=== PATIENT | male | born 1980 | race Caucasian/White ===

== ENCOUNTER 2018-05-12 21:27 | Emergency (ER) | payer BC ==
--- NOTE | 2018-05-13 00:15 | RADIOLOGY REPORT (SQ) ---
EXAM DESCRIPTION: Acute abdominal series single view chest. COMPLETED DATE/TME: 05/12/2018 23:28 CLINICAL HISTORY: 37 years, Male, LLQ pain FINDINGS: Single view of the chest with upright and supine views of the abdomen. Cardiomediastinal silhouette has normal size and contour. No consolidation, pneumothorax, or pleural effusion. No free intraperitoneal air. No definite organomegaly. 2 calcifications overlie the expected region of the left kidney, the largest measuring 0.7 cm. No dilated loops of large or small bowel. IMPRESSION: 1. No acute pulmonary process. 2. Left nephrolithiasis. 3. Nonobstructive bowel gas pattern. 2011 [employer]- All Rights Reserved
[2018-05-13 00:21] LABS: ABSOLUTE BASOPHILS # (AUTO) 0.1 10^3/uL (0.0-0.2); ABSOLUTE EOSINOPHILS # (AUTO) 0.4 10^3/uL (0.0-0.6); ABSOLUTE LYMPHOCYTES (AUTO) 3.6 10^3/uL (0.5-4.7); ABSOLUTE MONOCYTES (AUTO) 0.9 10^3/uL (0.1-1.4); ABSOLUTE NEUT (AUTO) 7.2 10^3/uL (1.7-8.2); BASOPHILS % (AUTO) 1.2 % (0-2); EOSINOPHILS % (AUTO) 3.1 % (0-6); HEMATOCRIT 45.9 % (37.9-51.0); HEMOGLOBIN 15.6 g/dL (13.5-17.0); LYMPHOCYTES % (AUTO) 29.2 % (13-45); MEAN CORPUSCULAR HEMOGLOBIN 30.4 pg (27.0-33.4); MEAN CORPUSCULAR HGB CONC 34.1 g/dL (32.0-36.0); MEAN CORPUSCULAR VOLUME 89 fl (80-97); MONOCYTES % (AUTO) 7.5 % (3-13); PLATELET COUNT 241 10^3/uL (150-450); RED BLOOD COUNT 5.14 10^6/uL (4.35-5.55); RED CELL DISTRIBUTION WIDTH 13.1 % (11.5-14.0); TOTAL CELLS COUNTED % (AUTO) 100 %; WHITE BLOOD COUNT 12.3 10^3/uL (4.0-10.5)
--- NOTE | 2018-05-13 00:21 | ER Document Report ---
ED General - General Chief Complaint: Abdominal Pain Stated Complaint: ABDOMINAL PAIN Time Seen by Provider: 05/12/18 23:12 Mode of Arrival: Ambulatory Information source: Patient Notes: 37-year-old male patient presents with left sided abdominal pain that has been intermittent for the last 2 weeks. Patient reports that he has also had nausea for the last 2 days. Patient denies any vomiting, diarrhea or fever. Patient denies any urinary symptoms such as frequency, urgency or dysuria. Patient does report that he usually has a normal soft bowel movement at least once a day patient reports that his bowel movements have changed. Patient reports that now he has "flaky" bowel movements which are not normal for him. Patient reports past medical history of kidney stones, patient states that he has a stone sitting in his left kidney that was diagnosed last summer. Patient reports past surgical history of a vasectomy approximately 10 years ago. Patient denies the use of any tobacco or drugs. Reports occasional EtOH use TRAVEL OUTSIDE OF THE [place] IN LAST 30 DAYS: No - Related Data Allergies/Adverse Reactions: No Known Allergies Allergy (Verified 05/12/18 21:28) Past Medical History - General Information source: Patient - Social History Smoking Status: Never Smoker Chew tobacco use (# tins/day): No Frequency of alcohol use: Occasional Drug Abuse: None Lives with: Spouse/Significant other Family History: Other - mother with kidney stones Patient has suicidal ideation: No Patient has homicidal ideation: No Renal/ Medical History: Reports: Hx Kidney Stones. Denies: Hx Peritoneal Dialysis Past Surgical History: Reports: Hx Genitourinary Surgery - Vasectomy Review of Systems - Review of Systems Constitutional: No symptoms reported EENT: No symptoms reported Cardiovascular: No symptoms reported Respiratory: No symptoms reported Gastrointestinal: See HPI Genitourinary: No symptoms reported Male Genitourinary: No symptoms reported Musculoskeletal: No symptoms reported Skin: No symptoms reported Hematologic/Lymphatic: No symptoms reported Neurological/Psychological: No symptoms reported Physical Exam - Vital signs Vitals: Temp Pulse Resp BP Pulse Ox 98.2 F 99 20 129/94 H 98 05/12/18 21:47 05/12/18 21:47 05/12/18 21:47 05/12/18 21:47 05/12/18 21:47 - Notes Notes: PHYSICAL EXAMINATION: GENERAL: Well-appearing, well-nourished and in no acute distress. HEAD: Atraumatic, normocephalic. EYES: Pupils equal round and reactive to light, extraocular movements intact, sclera anicteric, conjunctiva are normal. ENT: Nares patent, oropharynx clear without exudates. Moist mucous membranes. NECK: Normal range of motion, supple without lymphadenopathy LUNGS: Breath sounds clear to auscultation bilaterally and equal. No wheezes rales or rhonchi. HEART: Regular rate and rhythm without murmurs ABDOMEN: TTP to LLQ, abdomen otherwise soft, nontender and nondistended. No guarding, no rebound. No masses appreciated. : No CVA tenderness Musculoskeletal: Normal range of motion, no pitting or edema. No cyanosis. NEUROLOGICAL: Cranial nerves grossly intact. Normal speech, normal gait. Normal sensory, motor exams PSYCH: Normal mood, normal affect. SKIN: Warm, Dry, normal turgor, no rashes or lesions noted. Course - Re-evaluation Re-evalutation: 37-year-old male patient with complaints of left lower lower quadrant pain intermittently for the last 2 weeks with associated nausea 2 days. Will draw CBC, comprehensive, lipase and perform a urinalysis. Will also do a acute abdominal series to evaluate for any constipation or blockages. Patient currently appears comfortable, patient states that he took a tablet of his OxyContin that he had at home leftover from his kidney stones patient reports that this helped somewhat with his pain. Patient declines the need for any pain or nausea medications at this time. CBC, comprehensive, lipase unremarkable. Urinalysis with large blood. Acute abdominal series with left nephrolithiasis. CT limited shows no acute inflammatory or obstructive processes. Left nephrolithiasis unchanged from previous. Appendix appears normal. Will discharge patient home with pain and nausea medications and ED return precautions to include worsening pain, persistent vomiting or development of fever. - Vital Signs Vital signs: Temp Pulse Resp BP Pulse Ox 98.2 F 99 20 129/94 H 98 05/12/18 21:47 05/12/18 21:47 05/12/18 21:47 05/12/18 21:47 05/12/18 21:47 - Laboratory Result Diagrams: 05/13/18 00:02 05/13/18 00:02 Laboratory results interpreted by me: 05/13/18 05/13/18 05/13/18 00:02 00:02 00:02 WBC 12.3 H Sodium 145.2 H Creatinine 1.31 H Urine Blood LARGE H Urine Urobilinogen 2.0 H Discharge - Discharge Clinical Impression: Nausea Abdominal pain Qualifiers: Abdominal location: left lower quadrant Qualified Code(s): R10.32 - Left lower quadrant pain Additional Instructions: Abdominal Pain There are many causes of abdominal pain. Pain can mean a serious problem requiring surgery (such as appendicitis). It can also be an innocent problem that goes away on its own (such as a viral infection). Often, time must pass to determine the cause of pain. The physician does not feel that hospitalization is necessary, at present. Things may change within the next 24 hours. Call the doctor or come back for re- examination if any problems occur, such as: (1) Pain that becomes more severe, steady, or becomes concentrated in one specific area. Also, pain that is more severe with movement or coughing. (2) Vomiting that persists or becomes more frequent. (3) Blood in the vomitus, urine, or bowel movements. Blood in the stool may have a tarry or black appearance. (4) Shaking chills or fever greater than 100 degrees F. (5) The abdomen becomes more distended or swollen. (6) Bowel movements cease. (7) Failure to improve as expected. Your work up today was normal other than some blood in your urine. This may be caused by your kidney stone. The kidney stone is still in the left kidney. Please taken the medications as prescribed. Please return to the emergency department if you develop worsening pain, vomiting, persistent diarrhea or if you develop a fever with any of the previous symptoms. Prescriptions: Hydrocodone Bit/Acetaminophen [Hydrocodon-Acetaminophen 5-325] 1 each PO Q4 PRN #12 tablet PRN Reason: For Pain Ondansetron [Zofran Odt 4 mg Tablet] 1 - 2 tab PO Q4H PRN #15 tab.rapdis PRN Reason: For Nausea/Vomiting Referrals: DIDIER VALDOVINOS MD [Primary Care Provider] - Follow up as needed
[2018-05-13 00:34] LABS: APPEARANCE,URINE CLEAR; BILIRUBIN,URINE NEGATIVE (NEGATIVE); COLOR,URINE YELLOW; GLUCOSE, URINE NEGATIVE (NEGATIVE); KETONES,URINE NEGATIVE (NEGATIVE); LEUKOCYTE ESTERASE,URINE NEGATIVE (NEGATIVE); NITRITE,URINE NEGATIVE (NEGATIVE); PROTEIN,URINE NEGATIVE (NEGATIVE); URINE SPECIFIC GRAVITY 1.021
[2018-05-13 00:36] LABS: ALANINE AMINOTRANSFERASE 64 U/L (21-72); ALBUMIN 4.5 g/dL (3.5-5.0); ALKALINE PHOSPHATASE 98 U/L (38-126); ANION GAP 11 (5-19); ASPARTATE AMINO TRANSFERASE 36 U/L (17-59); BILIRUBIN,DIRECT 0.3 mg/dL (0.0-0.4); BILIRUBIN,TOTAL 0.4 mg/dL (0.2-1.3); BLOOD UREA NITROGEN 18 mg/dL (7-20); CALCIUM 9.7 mg/dL (8.4-10.2); CARBON DIOXIDE 27 mmol/L (22-30); CHLORIDE 107 mmol/L (98-107); GLUCOSE 92 mg/dL (75-110); LIPASE 45.8 U/L (23-300); POTASSIUM 4.5 mmol/L (3.6-5.0); SODIUM 145.2 mmol/L (137-145); TOTAL PROTEIN 7.2 g/dL (6.3-8.2)
--- NOTE | 2018-05-13 02:16 | RADIOLOGY REPORT (SQ) ---
EXAM DESCRIPTION: CT ABDOMEN PELVIS WITHOUT IV CONTRAST COMPLETED DATE/TME: 05/13/2018 01:13 CLINICAL HISTORY: Left-sided abdominal pain. COMPARISON: 08/04/2016 TECHNIQUE: CT of the abdomen and pelvis without IV contrast. Evaluation of the solid organs and vasculature is suboptimal due to lack of IV contrast. DLP: 702.01 mGy-cm FINDINGS: Lung Bases: The visualized lung bases are clear. Bones: No destructive bone lesions identified. Abdomen: Liver: The liver has normal size and decreased density. Gallbladder: No calcified gallstones. Spleen, Pancreas, and Adrenal Glands: The spleen, pancreas, and adrenal glands are unremarkable. Kidneys: There are 2 nonobstructing left renal calculi, the largest measuring 0.7 cm. No obstructing ureteral calculi or hydronephrosis. Vasculature: The aorta and IVC have normal caliber and position. Stomach: The stomach and duodenum have normal course. Other: No free intraperitoneal air. No free fluid or lymphadenopathy. Pelvis: Bladder: Urinary bladder is unremarkable. Bowel: No dilated loops of large or small bowel. Appendix: Normal appendix. Pelvis: Prostate is not enlarged. IMPRESSION: 1. No acute inflammatory or obstructive process identified. 2. Left nephrolithiasis. 3. Hepatic steatosis. This exam was performed according to our departmental dose-optimization program, which includes automated exposure control, adjustment of the mA and/or kV according to patient size and/or use of iterative reconstruction technique.
[2018-05-13] MEDS ORDERED: ONDANSETRON ODT 4 MG TAB (6 TAB/ER DISP) PO PRN (02:25)
[2018-05-13] MEDS ORDERED: HYDROCODONE/ACETAMINOPHEN 5-325 MG (6 TAB/ER DISP) PO PRN (02:25)
[2018-05-13 02:51] VITALS: BP 114/85
== END 2018-05-13 02:51 | disposition home or self-care (01) ==
LOC: ER 21:27
DX: N20.0 Calculus of kidney (principal); D72.829 Elevated white blood cell count, unspecified; R10.812 Left upper quadrant abdominal tenderness; R10.32 Left lower quadrant pain; R11.0 Nausea; R19.4 Change in bowel habit
CPT/HCPCS: 36415; 74022; 74176; 80053; 81001; 83690; 85025; 99284